=== PATIENT | male | born 1950 ===

== ENCOUNTER 2022-12-24 09:51 | Inpatient (IN) | payer OTHER ==
[~2022-12-24] VITALS: Ht 162.6 cm; Wt 78.0 kg
[2022-12-24] MEDS ORDERED: ZOCOR20 MG PO (10:57)
[2022-12-24] MEDS ORDERED: LEVOTHYROXINE25 MCG PO (10:57)
[2022-12-24] MEDS ORDERED: TAMS0.4C PO (10:58)
[2022-12-24] MEDS ORDERED: ZESTRIL5 MG PO (10:58)
[2022-12-24] MEDS ORDERED: PEPCID AC10 MG PO (10:58)
[2023-01-02] MEDS ORDERED: TRAM1TAB98 PO (12:31)
[2023-01-02] MEDS ORDERED: INTESTINEX680 M1 PO (12:32)
[2023-01-02] MEDS ORDERED: LEVOFLOXACIN500 MG PO (12:32)
[2023-01-02] MEDS ORDERED: PEPCID AC20 MG PO (12:33)
== END 2023-01-02 12:53 | disposition home or self-care (01) | DRG 330 ==
LOC: O/R 12-30 10:47 → SURH 12-30 10:47 → SURG-SUITE 12-30 11:30 → SURH 12-30 21:04 → SURG-SUITE 12-30 21:30 → SURH 01-02 12:53
PROVIDERS: ADMIT Surgery; ATTEND Surgery
PROC: 0DBP0ZZ Excision of Rectum, Open Approach (ICD-10-PCS; 2022-12-30)
PROC: 0DBM0ZZ Excision of Descending Colon, Open Approach (ICD-10-PCS; 2022-12-30)
PROC: 0DN80ZZ Release Small Intestine, Open Approach (ICD-10-PCS; 2022-12-30)
PROC: 0DQ80ZZ Repair Small Intestine, Open Approach (ICD-10-PCS; 2022-12-30)
PROC: 0DNU0ZZ Release Omentum, Open Approach (ICD-10-PCS; 2022-12-30)
PROC: 0DTN0ZZ Resection of Sigmoid Colon, Open Approach (ICD-10-PCS; principal; 2022-12-30 21:30)
DX: K57.20 Diverticulitis of large intestine with perforation and abscess without bleeding (principal); K91.71 Accidental puncture and laceration of a digestive system organ or structure during a digestive system procedure; K66.0 Peritoneal adhesions (postprocedural) (postinfection); Z53.31 Laparoscopic surgical procedure converted to open procedure; Z20.822 Contact with and (suspected) exposure to COVID-19; E03.9 Hypothyroidism, unspecified